=== PATIENT | female | born 1970 | race African-American/Black ===

== ENCOUNTER 2022-08-09 02:19 | Observation (INO) | payer OTHER ==
[2022-08-09 04:03] LABS: #Eosinphils 0.1 thou/uL (0.0-0.7); #Lymphocytes 2.6 thou/uL (1.20-3.40); #Monocytes 0.4 thou/uL (0.11-0.59); #Neutrophils 5.7 thou/uL (1.40-6.50); %Basophils 0.1 % (0.0-1.0); %Eosinophils 0.9 % (0.0-10.0); %Lymphocytes 29.7 % (21.0-51.0); %Monocytes 4.6 % (0.0-10.0); %Neutrophils 64.6 % (42.0-75.0); Hemoglobin 13.1 g/dL (12.0-16.0); Mean Corpuscular HGB CONC 32.5 g/dL (32.0-36.0); Mean Corpuscular Hemoglobin 31.8 pg (27.0-31.0); Mean Corpuscular Volume 97.9 fL (78.0-98.0); Mean Platelet Volume 9.3 fL (7.4-10.4); Platelet Count 238 thou/uL (130-400); RBC Distribution Width 11.6 % (11.5-14.5); Red Blood Cell (RBC) Count 4.13 mill/uL (4.20-5.40); White Blood Cell (WBC) Count 8.8 thou/uL (4.8-10.8)
[2022-08-09] MEDS ORDERED: Ketorolac Tromethamine 30 MG/ML VIAL ONE (04:21)
[2022-08-09 04:30] LABS: ALT (SGPT) 14 U/L (8-55); AST (SGOT) 16 U/L (5-34); Albumin 4.5 g/dL (3.5-5.0); Alkaline Phosphatase 90 U/L (40-110); Anion Gap 16 mmol/L (10-20); BUN (Urea Nitrogen) 30 mg/dL (9.8-20.1); Bilirubin, Total 0.5 mg/dL (0.2-1.2); Calc. Creatinine Clearance 0 mL/min (70-130); Calcium 10.7 mg/dL (7.8-10.44); Carbon Dioxide 22 mmol/L (22-29); Chloride 103 mmol/L (98-107); Estimated GFR 31; Globulin 4.6 g/dL (2.4-3.5); Glucose 162 mg/dL (70-105); Potassium 3.3 mmol/L (3.5-5.1); Protein, Total 9.1 g/dL (6.0-8.3); Sodium 138 mmol/L (136-145)
[2022-08-09] MEDS ORDERED: Morphine 2 MG/ML VIAL ONE (05:43)
[2022-08-09] MEDS ORDERED: Morphine 4 MG/ML VIAL ONE (05:43)
[2022-08-09] MEDS ORDERED: Ondansetron PF 4 MG/2 ML Vial ONE ×3 (06:28→08:40)
[2022-08-09 06:43] LABS: SARS-CoV-2 NAA Rapid Test Not Detected (NotDetected)
[2022-08-09] MEDS ORDERED: Levofloxacin 500 mg/D5W 100 ml Premix Bag ONE (07:18)
[2022-08-09 07:31] LABS: Clarity Hazy (Clear); Leukocyte Unable to Interpret Leu/uL (Negative); Specific Gravity, Urine 1.016 (1.002-1.036)
[2022-08-09 07:32] LABS: Bilirubin Unable to Interpret (Negative); Blood, Urine Unable to Interpret (Negative); Glucose, Urine (Dipstick) Unable to Interpret mg/dL (Negative); Ketone, Urine Unable to Interpret mg/dL (Negative); Nitrite Unable to Interpret (Negative); Protein, Urine (Dipstick) Unable to Interpret mg/dL (Neg-Trace); Urobilinogen UNABLE TO INTERPRET mg/dL (Less than 2)
[2022-08-09 07:34] LABS: Bacteria/HPF 1+ HPF (None Seen); Squamous Epithelial 0-3 HPF (0-3); WBC/HPF 0-3 HPF (0-3)
[2022-08-09] MEDS ORDERED: fentaNYL PF 100 MCG/2 ML SYRINGE ONE (07:53)
[2022-08-09] MEDS ORDERED: Iopamidol 30 ML ONE (08:21)
[2022-08-09] MEDS ORDERED: Lidocaine 1% MPF 2 ML VIAL ONE (08:40)
[2022-08-09] MEDS ORDERED: PROPOFOL 200 MG/20 ML VIAL ONE (08:40)
[2022-08-09] MEDS ORDERED: ePHEDrine 50 MG/ML VIAL ONE (08:40)
[2022-08-09] MEDS ORDERED: Dexamethasone 20 MG/5 ML VIAL ONE (08:40)
[2022-08-09] MEDS ORDERED: Promethazine HCl 25 MG/ML VIAL IM PRN (09:58)
[2022-08-09] MEDS ORDERED: PACU-Morphine 4MG/ML VIAL SLOW IVP PRN (09:58)
[2022-08-09] MEDS ORDERED: HYDROmorphone 2 MG/ML VIAL SLOW IVP PRN (09:58)
[2022-08-09] MEDS ORDERED: Ondansetron HCl/PF 4 MG/2 ML Vial IVP PRN (09:58)
[2022-08-09] MEDS ORDERED: Promethazine HCl 25 MG/ML VIAL IVPB PRN (09:58)
[2022-08-09] MEDS ORDERED: Morphine 2 MG/ML VIAL SLOW IVP PRN (10:01)
[2022-08-09] MEDS ORDERED: Mag-Al 1200 mg/1200 mg/30 ML UDCUP PO PRN (10:01)
[2022-08-09] MEDS ORDERED: hydrALAZINE 20 MG/ML VIAL SLOW IVP PRN (10:01)
[2022-08-09] MEDS ORDERED: diphenhydrAMINE 25 MG CAP PO PRN (10:01)
[2022-08-09] MEDS ORDERED: Oxybutynin 5 MG TAB PO PRN (10:01)
[2022-08-09] MEDS ORDERED: HYDROcodone/Acetaminophen 5/325 mg Tablet PO PRN ×2 (10:01)
[2022-08-09] MEDS ORDERED: Phenazopyridine HCl 95 MG TAB PO PRN (10:01)
[2022-08-09] MEDS ORDERED: Bisacodyl 10 MG SUPP PR PRN (10:01)
[2022-08-09] MEDS ORDERED: Acetaminophen 500 MG TAB PO PRN (10:01)
[2022-08-09] MEDS ORDERED: Morphine 4 MG/ML VIAL SLOW IVP PRN (10:01)
[2022-08-09] MEDS: Sodium Chloride 0.9% 1,000 ML IV SCH (11:04)
[2022-08-09] MEDS ORDERED: Simvastatin 5 MG TAB PO SCH (21:00)
[2022-08-09] MEDS ORDERED: Famotidine/PF 20 mg/2ml Vial SLOW IVP SCH (21:00)
[2022-08-09] MEDS ORDERED: Docusate 100 MG CAP PO SCH (21:00)
[2022-08-10] MEDS: Sodium Chloride 0.9% 1,000 ML IV SCH ×2 (05:21→07:20)
[2022-08-10 06:01] VITALS: TEMP 97.6
[2022-08-10 06:01] LABS: Anion Gap 11 mmol/L (10-20); BUN (Urea Nitrogen) 32 mg/dL (9.8-20.1); Calc. Creatinine Clearance 0 mL/min (70-130); Calcium 9.2 mg/dL (7.8-10.44); Carbon Dioxide 26 mmol/L (22-29); Chloride 106 mmol/L (98-107); Estimated GFR 41; Glucose 136 mg/dL (70-105); Potassium 4.1 mmol/L (3.5-5.1); Sodium 139 mmol/L (136-145)
[2022-08-10 06:47] VITALS: BMI 37.2
[2022-08-10 08:20] VITALS: BP 119/71
[2022-08-10] MEDS ORDERED: Hydrochlorothiazide 25 MG TAB PO SCH (09:00)
[2022-08-10] MEDS ORDERED: cefTRIAXone\\ROCEPHIN 1 GM in Sodium Chloride 0.9% 100 ML IVPB SCH (11:00)
[2022-08-14 09:15] LABS: Color Brown (.); Stone Weight 352 mg (.); Uric Acid 100 % (.)
== END 2022-08-10 08:14 | disposition home or self-care (01) ==
LOC: ERS 02:19 → SDC 07:57 → SURG A 10:01
PROVIDERS: ADMIT Urology; ATTEND Urology
PROC: 0TC68ZZ Extirpation of Matter from Right Ureter, Via Natural or Artificial Opening Endoscopic (ICD-10-PCS; principal; 2022-08-10)
PROC: 0T768DZ Dilation of Right Ureter with Intraluminal Device, Via Natural or Artificial Opening Endoscopic (ICD-10-PCS; 2022-08-10)
PROC: 0TCD8ZZ Extirpation of Matter from Urethra, Via Natural or Artificial Opening Endoscopic (ICD-10-PCS; 2022-08-10)
DX: N20.1 Calculus of ureter (principal); N21.1 Calculus in urethra; K80.20 Calculus of gallbladder without cholecystitis without obstruction; I10 Essential (primary) hypertension; E78.00 Pure hypercholesterolemia, unspecified; E66.01 Morbid (severe) obesity due to excess calories; Z68.37 Body mass index [BMI] 37.0-37.9, adult; Z79.899 Other long term (current) drug therapy
CPT/HCPCS: 36415; 74176; 74420; 80048; 80053; 81003; 81015; 82365; 85025; 86850; 86900; 86901; 87086; 88300; 94760; 96375; C1769; C2617; G0378; J1100; J1885; J1956; J2270; J2405; J2704; J3490; J7050; Q9967; S0028; U0002